=== PATIENT | female | born 1955 | race Caucasian/White ===

== ENCOUNTER → 2019-10-22 | Outpatient (CLI) | payer OTHER ==
[~2019-10-22] VITALS: Ht 157.5 cm; Wt 58.4 kg
[~2019-10-22] MED LIST: ALEVE220 MG PO; ANASTROZOLE1 MG PO; ASPIR 8181 MG PO; CALCIUM 600 +1 EAC1 PO; COZAAR 25 MG TA25 MG PO; DILTIAZEM 24HR120 M2 PO; FENOFIBRATE160 MG PO; FLEXERIL PO; HYDROCODONE-AP1 EAC6 PO; INDAPAMIDE2.5 MG PO; LEVOTHYROXIN0.125 M1 PO; MELATONIN3 M1 PO; NEURONTIN 300300 M1 PO; NORVASC5 MG PO; OMEPRAZOLE20 M2 PO; POTASSIUM20 PO; PRAVACHOL20 MG PO; PRAVASTATIN SOD10 MG PO; RESTASIS1 EACH OPHTHALMIC; SLOW-MAG64 M1 PO; UNICOMPLEX M TA1 TA1 PO; VITAMIN B12-FO1 EAC1 PO
[2019-10-22 10:38] VITALS: BP 130/60
--- NOTE | 2019-10-22 10:44 | NUR ---
Pain Clinic Assessment: 1. History of Osteoarthritis: KNEE SPINE History of Rheumatoid Arthritis: Not Applicable 2. Height: 5 ft. 2 in. 157.5 cm. Weight: 128.0 lb. 12 oz. 58.401 kg. Patient's BMI: 23.5 3. Vital Signs: BP: 130/60 Pulse: 72 Resp: 16 Temp: 02 Sat: 97 ECG Mon: 4. Pain Intensity: 8 5. Fall Risk: Dizziness: N Needs help standing or walking: N Fallen in the last 3 months: N Fall risk comments: 6. Patient on Blood Thinner: None 7. History of Hypertension: Y 8. Opioid Therapy greater than 6 weeks: N Opiate Contract Signed: 9. Risk Assessment Tool Provided: 0-LOW 10. Functional Assessment Tool: 11. Recreational Drug Use: Never Drug Type: Tobacco Use: Former Smoker Tobacco Type: Amount or Packs/day: How Many Years: Alcohol Use: Yes Frequency: Weekly Quant: 1
--- NOTE | 2019-10-24 07:30 | HPC ---
[facility] [place] [address] PAIN MANAGEMENT CONSULTATION Name: PRIYANKA TATE Room #: REG GLENIS Felder.#: [id number] Admission: 10/22/19 Attend Phys: Nish Merino DO Discharge: Date of : 51 Report #: [id number] THIS REPORT FOR: cc: Luis Wing MD, Jonathan T. MD Johnson, James E. DO ~ DATE OF SERVICE: 10/22/2019 REFERRING PHYSICIAN: Saskia Parikh MD CHIEF COMPLAINT: Low back pain, left lower extremity pain and paresthesias. HISTORY OF PRESENT ILLNESS: As you know, the patient is a 64-year-old female who has had a history of low back pain, treated with epidural injections in the past involving low back and left lower extremity. She indicated those injections were in 2017, where she received good benefit. She reports that her pain returned spontaneously without inciting injury or trauma on 08/23/2019. She states that her symptoms only involved the left low back and left lower extremity, does not radiate down the right side. She states this is her typical pain distribution from symptoms she experienced in 2017. She discussed her case with her primary care physician, Dr. Luis Wing, who sent the patient for further imaging. It was found the patient had changes both above and below her fusion at the L4-L5 level. The most profound changes were at the L3-L4 level. Due to lack of improvement with conservative treatment options, the patient was sent to our clinic to undergo interventional treatments if deemed appropriate. The patient indicates today, pain is periodic, describes the pain as burning and sharp. Places current pain score 7-8/10, daily average of 6-7/10, worst pain has been 9/10. The patient states pain is exacerbated with walking, standing for any length of time, improves with sitting and sleeping. She has been referred to our service to discuss treatment options for suspected lumbar radiculopathy involving low back and left lower extremity. PAST MEDICAL HISTORY: 1. Chronic anemia. 2. Hypertension. 3. Chronic lumbar radiculopathy. 4. History of Graves' disease. 5. History of breast cancer. PAST SURGICAL HISTORY: 1. section. 2. Lumbar laminectomy and fusion. 3. Left breast lumpectomy. [address] [address] PAIN MANAGEMENT CONSULTATION Name: PRIYANKA TATE Room #: REG [facility] Emerita.#: [id number] Admission: 10/22/19 Attend Phys: Nish Merino DO Discharge: Date of : 51 Report #: [id number] SOCIAL HISTORY: The patient denies IV or illicit drug use. Denies any chronic alcohol use. She denies any significant alcohol use. She is a retired hospice social worker. She has been out of the work for about 4 years. She is not receiving workmen's compensation nor is trying to obtain disability benefits. She is not in litigation in regards to her pain. She is unaccompanied at today's visit. REVIEW OF SYSTEMS: 1. Positive for weight change, hearing loss with tinnitus, chronic sinus problems with rhinitis. 2. Graves' disease. 3. Anemia. 4. Low back pain and left lower extremity pain. All other review of systems negative per 12-point review of systems other than those listed in history of present illness. Pain impact score rated at 29/70 indicating moderate interference of daily activities secondary to pain. ALLERGIES: PENICILLIN, SULFA, ERYTHROMYCIN, CLINDAMYCIN, RANITIDINE. CURRENT MEDICATIONS: Melatonin 3 mg p.o. at bedtime, cyanocobalamin 1 tab per day, pravastatin 10 mg per day, losartan 25 mg per day, gabapentin 300 mg twice a day, diltiazem ER 120 mg once a day, cyclobenzaprine 10 mg t.i.d., hydrocodone/acetaminophen 5/325 one tab every 8 hours p.r.n. for pain, Lumigan drop each eye per day, calcium carbonate 1 tab per day, levothyroxine 125 mcg per day, anastrozole 1 mg per day, omeprazole 20 mg per day, multivitamin 1 tab per day. IMAGING: MRI lumbar spine obtained on 09/30/2019 shows L1-L2, L2-L3 unremarkable. L3-L4 shows broad-based central disk bulge without annular tear or disk protrusion. There is hypertrophic facet arthropathy. The combination with grade 1 anterolisthesis leads to lateral recess and foraminal stenosis bilaterally. No significant central canal stenosis. L4-L5 shows postoperative changes. No evidence of central canal or neural foraminal stenosis. L5-S1, mild bilateral foraminal narrowing due to facet arthropathy. No evidence of disk herniation, significant stenosis in the central canal or neural foramen. PQRS: The patient has known arthritic changes of the lumbar spine, mildly in the hips and bilateral knees. No rheumatoid arthritis. Placing pain score today at 8/10. She is not a fall risk nor has she had a fall in last 3 months. She is not on blood thinners, but she is treated for hypertension. She is not on chronic opioids, has a low opiate addiction potential. Pain impact score 29/70 indicating moderate interference of daily activities secondary to pain. PHYSICAL EXAMINATION: VITAL SIGNS: Blood pressure 130/60, pulse 72, respiratory rate 16 and unlabored. The patient is 97% on room air. Height 5 feet 2 inches tall, weight [facility] [address] [place] [address] PAIN MANAGEMENT CONSULTATION Name: PRIYANKA TATE Room #: REG [facility]..#: [id number] Admission: 10/22/19 Attend Phys: Nish Merino DO Discharge: Date of : 51 Report #: [id number] 128 pounds, BMI calculated 23.5. GENERAL: Well-developed, well-nourished, well-hydrated 64-year-old female, appearing stated age, pain is rated today at 8/10. HEENT: Normocephalic, atraumatic. Pupils equal, round and reactive. Extraocular muscles are intact. Speech fluent. The patient deemed a good historian. LUNGS: Clear. No wheeze or rhonchi. No appreciable rales. CARDIOVASCULAR: Regular. No appreciable gallop, no rub. ABDOMEN: Soft, nontender, nondistended, normoactive bowel sounds. EXTREMITIES: Show no clubbing, no cyanosis, no edema. MUSCULOSKELETAL: Lower extremity strength appears symmetrical 5/5. There is slight giveaway strength noted with hip flexion on the left when compared to the right. Seated straight leg raising negative. Supine straight leg raising positive on the left. Miguel's test is negative bilaterally. Gait mildly antalgic favoring left lower extremity over right. Muscle bulk and tone is equal and symmetrical in lower extremities. Babinski is negative. ASSESSMENT: 1. Lumbar radiculopathy. 2. Lateral recess stenosis of lumbar spine. 3. Foraminal stenosis of the lumbar spine. 4. Chronic intractable pain. PLAN: 1. Based on today's physical exam and history the patient has provided, the description, the patient uses in regards to pain as well as location of symptoms, it would appear the patient is suffering from lumbar radiculopathy. I am unable to elicit any intrinsic hip pathology that may be the source of the patient's symptoms, though this cannot be ruled out completely. The patient does have findings at the L3-L4 level consistent with the distribution of pain on the left, though interestingly the pathology at the L3-L4 level is symmetrical in its presentation. We discussed with the patient the treatment options for suspected lumbar radiculopathy today. The following was discussed with the patient. We discussed physical therapy, stretching exercise, core strengthening and mobility training. We discussed medication management utilizing nonsteroidal anti-inflammatories and neuropathic pain medication such as amitriptyline, nortriptyline, Cymbalta, Lyrica or gabapentin. We discussed lumbar epidural injections under fluoroscopic guidance for which the patient was referred to our clinic. We also discussed surgical options with the patient, though at this time, we would recommend conservative treatment initially. After reviewing the risks and benefits of all proposed treatment options, the patient chose to undergo lumbar epidural injection under fluoroscopic guidance. 2. No medication changes made at today's visit. The patient will continue current medical therapy as prior prescribed. 3. We will see the patient back in followup visit on as needed basis for possible next in the series of lumbar epidural injections. [address] [address] PAIN MANAGEMENT CONSULTATION Name: PRIYANKA TATE Room #: REG GLENIS Metzger#: [id number] Admission: 10/22/19 Attend Phys: Nish Merino DO Discharge: Date of : 51 Report #: [id number] 4. We wish to thank Dr. Luis Wing for the opportunity to see the patient in consultation. We will keep you apprised of response to treatment as we address suspected lumbar radiculopathy. Again, we wish to thank you for the opportunity to see this patient in consultation. PROCEDURE NOTE DESCRIPTION OF PROCEDURE: Lumbar epidural steroid injection under fluoroscopic guidance. This is the first procedure of the first series that the patient is undergoing. After obtaining written consent, the patient was taken back to the fluoroscopy suite, placed in a prone position with pillow under the abdomen to decrease lumbar lordosis. The skin overlying the lumbosacral area was then prepped and draped in aseptic fashion. The lumbar vertebral interspace was then identified by AP fluoroscopy. The skin and subcutaneous tissue overlying the target site of injection was anesthetized with 3 mL 1% lidocaine. A 20-guage 3-1/2 inch Tuohy needle was then advanced under fluoroscopic guidance towards the epidural space using a left paramedian approach. The epidural space was identified using loss of resistance to air technique. After negative aspiration for heme or cerebrospinal fluid, a total of 1 mL of Omnipaque was injected. A lumbar epidurogram was confirmed using both AP and lateral fluoroscopy. After negative aspiration for heme or cerebrospinal fluid, 5 mL of a solution containing 2 mL 40 mg per mL, 80 mg total triamcinolone along with 3 mL lidocaine 1% was injected in increments. Contrast spread was noted epidural space. The needle was then retracted approximately half way and needle tract flushed with 1 mL of 1% lidocaine. Needle was then removed. There were no apparent sensory or motor deficits in the lower extremity following the procedure. A sterile bandage was placed over the injection site. The heart rate, pulse, oximetry and blood pressure were continuously monitored after the procedure. There were no apparent complications. The patient tolerated the procedure well and was carefully escorted to the recovery room in stable condition. There were no apparent complications. After meeting discharge criteria, the patient was then discharged home. <ELECTRONICALLY SIGNED> By: Nish Merino DO 10/24/19 0730 [id number] Nish Merino DO /nt
== END ==
LOC: PAIN 06:48
PROVIDERS: ATTEND Anesthesiology Pain Medicine
DX: M54.5 Low back pain (principal); M48.061 Spinal stenosis, lumbar region without neurogenic claudication; M54.16 Radiculopathy, lumbar region; D64.89 Other specified anemias; G89.29 Other chronic pain; I10 Essential (primary) hypertension; Z85.3 Personal history of malignant neoplasm of breast; Z79.899 Other long term (current) drug therapy; Z98.890 Other specified postprocedural states; Z88.0 Allergy status to penicillin; Z88.2 Allergy status to sulfonamides; Z88.1 Allergy status to other antibiotic agents; Z88.8 Allergy status to other drugs, medicaments and biological substances

== ENCOUNTER → 2020-06-17 | Outpatient (CLI) | payer OTHER ==
[~2020-06-17] VITALS: Ht 157.5 cm; Wt 56.4 kg
[~2020-06-17] MED LIST changes: +LEVO-T75 MCG PO
[2020-06-17 08:40] VITALS: BP 123/54
--- NOTE | 2020-06-17 08:53 | NUR ---
Pain Clinic Assessment: 1. History of Osteoarthritis: KNEE SPINE History of Rheumatoid Arthritis: Not Applicable 2. Height: 5 ft. 2 in. 157.5 cm. Weight: 124.4 lb. oz. 56.427 kg. Patient's BMI: 22.7 3. Vital Signs: BP: 123/54 Pulse: 83 Resp: 14 Temp: 02 Sat: 97 ECG Mon: 4. Pain Intensity: 8 5. Fall Risk: Dizziness: N Needs help standing or walking: N Fallen in the last 3 months: N Fall risk comments: 6. Patient on Blood Thinner: None 7. History of Hypertension: Y 8. Opioid Therapy greater than 6 weeks: N Opiate Contract Signed: 9. Risk Assessment Tool Provided: 0-LOW 10. Functional Assessment Tool: 11. Recreational Drug Use: Never Drug Type: Tobacco Use: Former Smoker Tobacco Type: Amount or Packs/day: How Many Years: Alcohol Use: Yes Frequency: Quant:
--- NOTE | 2020-06-23 09:27 | HPC ---
[facility] [place] [address] PAIN MANAGEMENT CONSULTATION Name: PRIYANKA TATE Room #: REG GLENIS EmmanuelBozenaYvonne.#: [id number] Admission: 06/17/20 Attend Phys: Nish Merino DO Discharge: Date of : 51 Report #: [id number] THIS REPORT FOR: cc: Luis Wing MD, Jonathan T. MD Johnson, James E. DO ~ DOC #: [id number] DATE OF SERVICE: 06/17/2020 CHIEF COMPLAINT: Low back pain, left lower extremity pain with paresthesias. HISTORY OF PRESENT ILLNESS: As you know, the patient is a 64-year-old female with recurrence of low back pain, left lower extremity pain and paresthesias. The patient was seen in our clinic per the request of Dr. Luis Wing as a consultation, 10/22/2019, where she underwent a lumbar epidural injection under fluoroscopic guidance to address lumbar radicular pain. She has had complete resolution of symptoms until about a month ago where she has had a slow and progressive return of symptoms. She is placing pain score at 8/10. The patient denies injury or trauma that may have led to symptom development. She reports the pain as periodic and sharp in sensation, exacerbated with walking, standing, coughing and having a bowel movement, also Valsalva maneuvers, improves with lumbar epidural injections and lying down. She has been referred back to our clinic to undergo next in the series of lumbar epidural injections to address recurrent lumbar radiculopathy related to the L3-L4 level. The patient denies injury or trauma that may have led to symptom development. ALLERGIES: PENICILLIN, SULFA, ERYTHROMYCIN, CLINDAMYCIN, RANITIDINE. CURRENT MEDICATIONS: Magnesium oxide 64 mg twice a day, potassium chloride 20 mEq p.o. every day, levothyroxine 100 mcg per day, melatonin 3 mg p.o. every day, pravastatin 10 mg per day, losartan 25 mg per day, gabapentin 300 mg twice a day, cyclobenzaprine 10 mg p.r.n., hydrocodone 5/325 one tab every 8 hours p.r.n. for pain, Restasis drops once a day, calcium carbonate 1 tab per day, multivitamin 1 tab per day, omeprazole 20 mg per day, anastrozole 1 mg per day SOCIAL HISTORY: The patient denies tobacco, alcohol or IV illicit drug use. She is unaccompanied at today's visit. IMAGING: No new imaging available. PQRS: The patient has known arthritic changes of the lumbar spine and bilateral knees. No rheumatoid arthritis, placing current pain score at 8/10. She is not a fall risk, has not had a fall in last 3 months. She is not on blood thinners, but is treated for hypertension. She is not on chronic opioids, has a low-opiate addiction potential. Pain impact is 47/70, moderate to severe interference of daily activities secondary to pain. [address] [address] PAIN MANAGEMENT CONSULTATION Name: LEAPRIYANKA Ricks Room #: REG Yash Metzger#: [id number] Admission: 06/17/20 Attend Phys: Nish Merino DO Discharge: Date of : 51 Report #: [id number] PHYSICAL EXAMINATION: VITAL SIGNS: Blood pressure 123/54, pulse 83, respiratory rate 14 and unlabored. The patient 97% on room air. Height 5 feet 2 inches tall, weight 124.4 pounds, BMI calculated at 22.7. GENERAL: Well-developed, well-nourished, well-hydrated 64-year-old female appearing stated age, pain is rated today at 8/10. HEENT: Normocephalic, atraumatic. Pupils are round and responsive. Extraocular muscles are intact. She is wearing a mask in compliance with COVID-19 regulations. EXTREMITIES: Show no clubbing, no cyanosis. No appreciable edema. MUSCULOSKELETAL: Palpatory tenderness is noted over the paraspinal musculature of lower lumbar spine on the left, negative right. Seated straight leg raising is negative on the left. Supine straight leg raising is positive on the left. Miguel's test is negative for any intrinsic hip pathology. No SI joint pain, gait is slightly antalgic favoring left lower extremity. Muscle bulk and tone is symmetrical in lower extremities. Intact to light touch from L1 through S2 dermatomes. ASSESSMENT: 1. Symptomatic lumbar radiculopathy. 2. Lateral recess stenosis of the lumbar spine. 3. Grade 1 anterolisthesis of L3 on L4. 4. Chronic intractable pain. PLAN: 1. The patient returns today in followup visit with recurrence of lumbar radicular symptoms. She did very well with previous epidural injection, but unfortunately her symptoms have reoccurred. No inciting injury or trauma. She has been advised of the risks and the benefits of a lumbar epidural injection for which the patient was referred back to our clinic to trial. She states she understands and wishes to proceed with the procedure. 2. The patient is to follow up with her neurosurgeon at her earliest convenience. There was discussion in the past. The patient may ultimately need to extend her fusion further. If the epidural injections are not beneficial, I would recommend that she follow up with her surgeon in regards to a more aggressive treatment approach. We are hopeful the patient will see good improvement with the epidural injection provided today. 3. No medication changes made at today's visit. The patient will continue current medical therapy as prior prescribed. 4. We will see the patient back in followup visit on an as needed basis for the next in the series of epidural injections. We have tentatively set the appointment for the patient in 1 month. PROCEDURE NOTE: DESCRIPTION OF PROCEDURE: Lumbar epidural steroid injection under fluoroscopic [address] [address] PAIN MANAGEMENT CONSULTATION Name: YEIMI TATEMAXIMINO Ricks Room #: REG [facility] Yassine#: [id number] Admission: 06/17/20 Attend Phys: Nish Merino DO Discharge: Date of : 51 Report #: [id number] guidance. After obtaining written consent, the patient was taken back to fluoroscopy suite, placed in prone position with pillow under abdomen to decrease lumbar lordosis. Skin overlying lumbosacral area prepped and draped in aseptic fashion. The intervertebral spaces were identified by AP fluoroscopy. Skin and subcutaneous tissue overlying target site injection anesthetized with 3 mL 1% lidocaine. A 20 gauge 3-1/2 inch Tuohy needle advanced under fluoroscopic guidance towards the epidural space using a left paramedian approach. Epidural space identified using loss of resistance to air technique. After negative aspiration for heme or cerebrospinal fluid, 1 mL of Omnipaque injected. Lumbar epidurogram confirmed using both AP and lateral fluoroscopy. After negative aspiration for heme or cerebrospinal fluid, 5 mL solution containing 2 mL 40 mg per mL 80 mg total triamcinolone along with 3 mL of lidocaine, 1% injected slowly. Needle retracted half-way flushed with 1 mL of 1% lidocaine and then removed. Sterile bandage placed over injection site. No new motor deficits present in lower extremity following procedure. The patient tolerated the procedure well, carefully escorted to recovery room in stable condition. No apparent complications. After meeting discharge criteria, the patient discharged home. DO MCKENNA Downey/CHRIS/ALEJANDRA <ELECTRONICALLY SIGNED> By: Nish Merino DO 06/23/20 0927 [id number] Nish Merino DO /nt
== END | disposition home or self-care (01) ==
LOC: PAIN 07:04
PROVIDERS: ATTEND Anesthesiology Pain Medicine
DX: M54.16 Radiculopathy, lumbar region (principal); M48.061 Spinal stenosis, lumbar region without neurogenic claudication; M43.16 Spondylolisthesis, lumbar region; G89.29 Other chronic pain; I10 Essential (primary) hypertension; M19.90 Unspecified osteoarthritis, unspecified site; Z98.890 Other specified postprocedural states; Z79.899 Other long term (current) drug therapy; Z88.0 Allergy status to penicillin; Z88.2 Allergy status to sulfonamides; Z88.8 Allergy status to other drugs, medicaments and biological substances

== ENCOUNTER → 2020-07-21 | Outpatient (CLI) | payer OTHER ==
[~2020-07-21] VITALS: Ht 157 cm; Wt 55.8 kg
[2020-07-21 11:31] VITALS: BP 127/70
--- NOTE | 2020-07-21 11:33 | NUR ---
Pain Clinic Assessment: 1. History of Osteoarthritis: KNEE SPINE History of Rheumatoid Arthritis: Not Applicable 2. Height: 5 ft. 1.81 in. 157.0 cm. Weight: 123.0 lb. oz. 55.792 kg. Patient's BMI: 22.6 3. Vital Signs: BP: 127/70 Pulse: 77 Resp: 14 Temp: 02 Sat: 98 ECG Mon: 4. Pain Intensity: 7-8 5. Fall Risk: Dizziness: N Needs help standing or walking: N Fallen in the last 3 months: N Fall risk comments: 6. Patient on Blood Thinner: None 7. History of Hypertension: Y 8. Opioid Therapy greater than 6 weeks: N Opiate Contract Signed: 9. Risk Assessment Tool Provided: 0-LOW 10. Functional Assessment Tool: 11. Recreational Drug Use: Never Drug Type: Tobacco Use: Former Smoker Tobacco Type: Amount or Packs/day: How Many Years: Alcohol Use: Yes Frequency: Quant:
--- NOTE | 2020-07-28 09:33 | HPC ---
[facility] [place] [address] PAIN MANAGEMENT CONSULTATION Name: PRIYANKA TATE Room #: REG GLENIS [facility].#: [id number] Admission: 07/21/20 Attend Phys: Nish Merino DO Discharge: Date of : 51 Report #: [id number] THIS REPORT FOR: cc: Luis Wing MD,Nish Chappell MD, DO ~ DOC #: [id number] cc: Luis Wing MD, MD Nish Coronel DO DATE OF SERVICE: 07/21/2020 DATE OF SERVICE: 07/21/2020 CHIEF COMPLAINT: Low back pain, left lower extremity pain with paresthesias. HISTORY OF PRESENT ILLNESS: As you know, the patient is a very pleasant 64-year-old female who returns today in followup visit requesting a lumbar epidural injection under fluoroscopic guidance. The patient reports the previous lumbar epidural injection provided 90% improvement in overall pain lasting until just recently with a slow and progressive return of symptoms. She reports no injury or trauma that may have led to symptom development. She underwent the first in the series of these epidural injections in 06/2020 per the request of Dr. Luis Wing. She returns today to undergo the second in the series. ALLERGIES: PENICILLIN, SULFA, CLARITHROMYCIN, CLINDAMYCIN, RANITIDINE. CURRENT MEDICATIONS: See chart. SOCIAL HISTORY: The patient denies tobacco, alcohol or IV or illicit drug use. She is unaccompanied today. IMAGING: No new imaging available. PQRS: The patient has known arthritic changes of the lumbar spine, bilateral hips. No rheumatoid arthritis. She is placing current pain score at 7-8/10, not a fall risk, has not had a fall in last 3 months. She is not on blood thinners, but is treated for hypertension. She is not on any opioids, but does have a low opiate addiction potential based on assessment tool. Pain impact is today reported at 50/70, severe interference in daily activities secondary to pain. PHYSICAL EXAMINATION: VITAL SIGNS: Blood pressure 127/70, pulse 77, respiratory rate 14 and unlabored. The patient 98% on room air. Height 5 foot 1 inch tall, weight 123 pounds, BMI calculated 22.6. [place] [address] PAIN MANAGEMENT CONSULTATION Name: PRIYANKA TATE Room #: REG [facility]#: [id number] Admission: 07/21/20 Attend Phys: Nish Merino DO Discharge: Date of : 51 Report #: [id number] GENERAL: Well-developed, well-nourished, well-hydrated 64-year-old female appearing her stated age, placing current pain score at 7-8/10. HEENT: normocephalic, atraumatic. Pupils equal, round and responsive to light. Extraocular muscles are intact. EXTREMITIES: Show no clubbing, no cyanosis. No appreciable edema. MUSCULOSKELETAL: Lower extremity strength is symmetrical 5/5 intact to light touch from L1 through S2 dermatomes. Seated straight leg raising negative. Supine straight leg raising positive on the left. Miguel's test is negative. Modified Gaenslen's positive for axial low back pain. ASSESSMENT: 1. Symptomatic lumbar radiculopathy. 2. Lateral recess stenosis of lumbar spine. 3. Grade I anterolisthesis of L3 on L4. 4. Chronic intractable pain. PLAN: 1. The patient returns today in followup visit to undergo next in the series of lumbar epidural injections under fluoroscopic guidance. She reports previous epidural injection gave 90% improvement in overall pain for a prolonged period of time with a slow and progressive return of symptoms without inciting injury or trauma. She returns today for the second in the series of epidural injections. She has been advised the risks and benefits of the procedure, states understood and wished to proceed. 2. No medication changes made at today's visit. The patient will continue current medical therapy as prior prescribed. 3. We plan to see the patient back in followup visit on an as needed basis for the next in the series of epidural injections. We are hopeful the patient will see good and prolonged benefit with today's epidural injection. DESCRIPTION OF PROCEDURE: L5-S1 interlaminar epidural steroid injection under fluoroscopic guidance. After obtaining written consent, the patient was taken back to fluoroscopy suite, placed in prone position with pillow under abdomen to decrease lumbar lordosis. Skin overlying lumbosacral area prepped and draped in aseptic fashion. The L5-S1 vertebral interspace identified by AP fluoroscopy. Skin and subcutaneous tissue overlying target site injection anesthetized with 3 mL 1% lidocaine. A 20 gauge 3-1/2 inch Tuohy needle was advanced under fluoroscopic guidance towards the epidural space using a parasagittal approach. Epidural space identified using loss of resistance to air technique. After negative aspiration for heme or cerebrospinal fluid, 1 mL of Omnipaque injected. A lumbar epidurogram was confirmed using both AP and lateral fluoroscopy. After negative aspiration for heme or cerebrospinal fluid, 5 mL solution containing 2 mL [address] [id number] PAIN MANAGEMENT CONSULTATION Name: PRIYANKA TATE Room #: I[facility]#: [id number] Admission: 07/21/20 Attend Phys: Nish Merino DO Discharge: Date of : 51 Report #: [id number] per mL 80 mg total triamcinolone along with 3 mL of lidocaine, 1% injected slowly. Needle was retracted approximately detention, flushed with 1 mL of 1% lidocaine and then removed. Sterile bandage placed over injection site. No new motor deficits present in lower extremity following procedure. The patient tolerated the procedure well, carefully escorted to recovery room in stable condition. No apparent complications. After meeting our discharge criteria, the patient discharged home. Nish Merino DO JEJ/PARVIN <ELECTRONICALLY SIGNED> By: Nish Merino DO 07/28/20 [id number] Nish Merino DO /nt
== END | disposition home or self-care (01) ==
LOC: PAIN 07:04
PROVIDERS: ATTEND Anesthesiology Pain Medicine
DX: M54.16 Radiculopathy, lumbar region (principal); M43.16 Spondylolisthesis, lumbar region; M48.061 Spinal stenosis, lumbar region without neurogenic claudication; G89.29 Other chronic pain; I10 Essential (primary) hypertension; M19.90 Unspecified osteoarthritis, unspecified site; Z98.890 Other specified postprocedural states; Z79.899 Other long term (current) drug therapy; Z88.0 Allergy status to penicillin; Z88.2 Allergy status to sulfonamides; Z88.8 Allergy status to other drugs, medicaments and biological substances